=== PATIENT | female | born 1970 | race Caucasian/White ===

== ENCOUNTER 2023-05-14 08:40 | Emergency (ER) | payer BC ==
[~2023-05-14] VITALS: Ht 172.7 cm; Wt 97.7 kg
[2023-05-14 08:41] VITALS: TEMP 96.7; O2SAT 99
[2023-05-14 11:56] VITALS: BP 128/72
== END 2023-05-14 11:58 | disposition home or self-care (01) ==
LOC: M ED 08:40
DX: S50.01XA Contusion of right elbow, initial encounter (principal); M25.539 Pain in unspecified wrist; W01.0XXA Fall on same level from slipping, tripping and stumbling without subsequent striking against object, initial encounter; Y92.59 Other trade areas as the place of occurrence of the external cause

== ENCOUNTER → 2023-09-10 | Outpatient (REF) | payer BC ==
[2023-09-13 19:07] LABS: ANTINUCLEAR ANTIBODIES DIRECT Negative (Negative); CYCLIC CITRULLINATED PEPTIDE 8 units (0-19)
== END ==
LOC: M LAB REF 16:21
PROVIDERS: ATTEND Internal Medicine
DX: M25.50 Pain in unspecified joint (principal); Z11.59 Encounter for screening for other viral diseases

== ENCOUNTER → 2024-03-21 | Outpatient (CLI) | payer BC | LOC: M WHC 06:52 | PROVIDERS: ATTEND Internal Medicine | DX: R10.2 Pelvic and perineal pain (principal); D25.0 Submucous leiomyoma of uterus; N88.8 Other specified noninflammatory disorders of cervix uteri ==

== ENCOUNTER 2024-04-07 04:05 | Emergency (ER) | payer BC ==
[~2024-04-07] VITALS: Ht 172.7 cm; Wt 91.2 kg
[~2024-04-07 04:05] MED LIST: FAMO20TA PO; MELO15TA28 PO
[2024-04-07] MEDS: NS 1,000 ML IV ONE (07:08)
[2024-04-07 07:16] LABS: BASO % 0.7 % (0.0-1.0); EOS % 0.5 % (0.0-3.0); HEMATOCRIT 48.5 % (36.0-47.0); HEMOGLOBIN 15.6 g/dl (12.0-15.5); LYMPH # 1.2 10^3/uL (1.5-5.0); LYMPH % 28.3 % (24.0-44.0); MEAN CORPUSCULAR HEMOGLOBIN 27.4 pg (27.0-33.0); MEAN CORPUSCULAR HGB CONC 32.2 g/dl (32.0-36.5); MEAN CORPUSCULAR VOLUME 85.1 fl (80.0-96.0); MONO # 0.5 10^3/uL (0.0-0.8); NEUTROPHILS # 2.4 10^3/uL (1.5-8.5); NEUTROPHILS % 58.3 % (36.0-66.0); PLATELET COUNT, AUTOMATED 248 10^3/uL (150-450); WHITE BLOOD COUNT 4.1 10^3/uL (4.0-10.0)
[2024-04-07] MEDS: ONDANSETRON 4MG 2ML VIAL IV ONE (07:25)
[2024-04-07] MEDS: ACETAMINOPHEN 325 MG TAB PO ONE (07:25)
[2024-04-07 07:46] LABS: CALCIUM LEVEL 9.2 MG/DL (8.5-10.1); CREATININE FOR GFR 1.11 MG/DL (0.55-1.30); GLOMERULAR FILTRATION RATE 54.5 (>51); POTASSIUM SERUM 4.3 MMOL/L (3.5-5.1)
[2024-04-07] MEDS ORDERED: ONDA-282 PO (08:36)
[2024-04-07 08:41] VITALS: BP 115/74; TEMP 96.8; O2SAT 95
== END 2024-04-07 08:44 | disposition home or self-care (01) ==
LOC: M ED 04:05
DX: J11.1 Influenza due to unidentified influenza virus with other respiratory manifestations (principal); Z85.71 Personal history of Hodgkin lymphoma; Z79.899 Other long term (current) drug therapy
CPT/HCPCS: 71046; 80048; 85025; 87486; 87581; 87633; 87798; 96360; 96374; 99284; J2405

== ENCOUNTER → 2024-10-12 | Outpatient (REF) | payer BC ==
[~2024-10-12] MED LIST changes: +ONDA-282 PO
[2024-10-12 14:21] LABS: C REACTIVE PROTEIN QUANTITATIV < 0.50 MG/DL (<1.0)
[2024-10-12 14:26] LABS: THYROID PEROXIDASE ANTIBODY 44 U/ML (<60.0)
== END ==
LOC: M LAB REF 12:51
PROVIDERS: ATTEND Physician Assistant Medical
DX: R10.2 Pelvic and perineal pain (principal); R53.83 Other fatigue; R63.5 Abnormal weight gain

== ENCOUNTER → 2024-10-16 | Outpatient (CLI) | payer BC | LOC: M WUC 08:25 | PROVIDERS: ATTEND Physician Assistant Medical | DX: M25.511 Pain in right shoulder (principal) ==

== ENCOUNTER → 2024-11-29 | Outpatient (CLI) | payer BC | LOC: M RAD 11:50 | PROVIDERS: ATTEND Nurse Practitioner Adult Health | DX: N95.0 Postmenopausal bleeding (principal); D25.0 Submucous leiomyoma of uterus; N88.8 Other specified noninflammatory disorders of cervix uteri ==

== ENCOUNTER → 2025-01-10 | Outpatient (REF) | payer BC | LOC: M LAB REF 12:16 | PROVIDERS: ATTEND Physician Assistant Medical | DX: M25.50 Pain in unspecified joint (principal) ==

== ENCOUNTER → 2025-01-18 | Outpatient (CLI) | payer BC | LOC: M WUC 09:42 | PROVIDERS: ATTEND Physician Assistant Medical | DX: M79.89 Other specified soft tissue disorders (principal); M25.541 Pain in joints of right hand; M25.542 Pain in joints of left hand ==

== ENCOUNTER → 2025-02-05 | Outpatient (REF) | payer BC ==
[2025-02-05 15:06] LABS: HEMATOCRIT 43.9 % (36.0-47.0); HEMOGLOBIN 14.1 g/dl (12.0-15.5); MEAN CORPUSCULAR HEMOGLOBIN 27.6 pg (27.0-33.0); MEAN CORPUSCULAR HGB CONC 32.1 g/dl (32.0-36.5); MEAN CORPUSCULAR VOLUME 85.9 fl (80.0-96.0); PLATELET COUNT, AUTOMATED 321 10^3/uL (150-450); RED BLOOD COUNT 5.11 10^6/uL (4.00-5.40); WHITE BLOOD COUNT 6.3 10^3/uL (4.0-10.0)
== END ==
LOC: M LABWUC 14:24
PROVIDERS: ATTEND Obstetrics & Gynecology
DX: N95.0 Postmenopausal bleeding (principal)

== ENCOUNTER → 2025-07-18 | Outpatient (CLI) | payer BC | LOC: M WUC 08:14 | PROVIDERS: ATTEND Physician Assistant Medical | DX: M25.561 Pain in right knee (principal); M25.562 Pain in left knee; M17.0 Bilateral primary osteoarthritis of knee ==